=== PATIENT | female | born 1985 | race Caucasian/White ===

== ENCOUNTER 2024-10-18 18:41 | Emergency (ER) | payer BC | END 2024-10-18 21:12 | disposition home or self-care (01) | LOC: DL.ED 18:41 | DX: M79.662 Pain in left lower leg (principal); Z90.710 Acquired absence of both cervix and uterus; Z86.16 Personal history of COVID-19; Z88.5 Allergy status to narcotic agent | CPT/HCPCS: 93971; 99285 ==